=== PATIENT | male | born 1980 | race Caucasian/White ===

== ENCOUNTER → 2020-04-24 | Emergency (ER) | payer OTHER ==
[~2020-04-24] VITALS: Ht 182.9 cm; Wt 86.2 kg
[~2020-04-24] MED LIST: LIDOCAINE 1% INJ 50 ML MDV IJ ONE; SULF1TAB48 PO; SULFAMETH/TRIMETH 800/160 MG 1 UDTAB TABLET ONE
[2020-04-24 14:44] VITALS: BP 122/82
[2020-04-24] MEDS: SULFAMETH/TRIMETH 800/160 MG 1 UDTAB TABLET PO ONE (15:29)
--- NOTE | 2020-04-24 15:34 | NUR ---
Patient discharged to home in stable condition. Written and verbal after care instructions given. Patient verbalizes understanding of instruction. PT. VERBALIZED UNDERSTANDING OF AFTERCARE INSTRUCTIONS.
== END | disposition home or self-care (01) ==
LOC: ER 14:32
DX: L02.415 Cutaneous abscess of right lower limb (principal); F17.200 Nicotine dependence, unspecified, uncomplicated
CPT/HCPCS: 10060; 99283; A6407; J3490

== ENCOUNTER 2021-01-09 12:38 | Emergency (ER) | payer OTHER ==
[~2021-01-09] VITALS: Ht 182.9 cm; Wt 83.9 kg
[~2021-01-09 12:38] MED LIST changes: -LIDOCAINE 1% INJ 50 ML MDV IJ ONE; -SULFAMETH/TRIMETH 800/160 MG 1 UDTAB TABLET ONE
[2021-01-09 13:03] VITALS: BP 126/83
--- NOTE | 2021-01-09 13:04 | NUR ---
TO ER BED 4, BIBSELF C/O PAIN 10/13 FROM [facility] HIP BOIL X1WK, PER PT HE ALWAYS GETS BOIL AND WAS SEEN HERE BEFORE FOR THAT, AAOX3, BREATHING EVEN AND NON LABORED
--- NOTE | 2021-01-09 14:22 | NUR ---
DR NELSON AT BEDSIDE
--- NOTE | 2021-01-09 14:49 | NUR ---
PT REFUSED FOR BP TO BE TAKEN
[2021-01-09] MEDS ORDERED: CEPH250C PO (15:23)
[2021-01-09] MEDS ORDERED: SULF1TAB48 PO (15:23)
--- NOTE | 2021-01-09 15:30 | NUR ---
Patient discharged to home in stable condition. Written and verbal after care instructions given. Patient verbalizes understanding of instruction. PT ambulatory with a steady gait
== END 2021-01-09 16:08 | disposition home or self-care (01) ==
LOC: ER 12:44
DX: L02.415 Cutaneous abscess of right lower limb (principal); L03.115 Cellulitis of right lower limb
CPT/HCPCS: 10060; 99283; A6403; A6407

== ENCOUNTER 2023-10-13 19:42 | Emergency (ER) | payer OTHER ==
[~2023-10-13] VITALS: Ht 175.3 cm; Wt 74.8 kg
[~2023-10-13 19:42] MED LIST changes: +CEPH250C PO
[2023-10-13 19:49] VITALS: TEMP 98.5
[2023-10-13 20:02] VITALS: BP 129/75; O2SAT 99
[2023-10-13] MEDS ORDERED: AMOX-430 PO (20:32)
[2023-10-13] MEDS ORDERED: METR-147 PO (20:32)
[2023-10-13] MEDS ORDERED: DOXY100T2 PO (20:32)
== END 2023-10-13 20:41 | disposition home or self-care (01) ==
LOC: ER 19:45
DX: N48.22 Cellulitis of corpus cavernosum and penis (principal); R59.1 Generalized enlarged lymph nodes; F99 Mental disorder, not otherwise specified; F17.200 Nicotine dependence, unspecified, uncomplicated; Z72.51 High risk heterosexual behavior